=== PATIENT | female | born 1990 | race Caucasian/White ===

== ENCOUNTER 2016-07-14 20:36 | Emergency (ER) | payer OTHER | END 2016-07-14 22:36 | disposition home or self-care (01) | LOC: ER 20:36 | DX: L23.2 Allergic contact dermatitis due to cosmetics (principal); Z90.49 Acquired absence of other specified parts of digestive tract; Z98.84 Bariatric surgery status; Z88.1 Allergy status to other antibiotic agents; Z88.5 Allergy status to narcotic agent; Z91.018 Allergy to other foods; Z88.8 Allergy status to other drugs, medicaments and biological substances | CPT/HCPCS: 96372; J1100 ==

== ENCOUNTER 2016-12-20 09:26 | Emergency (ER) | payer OTHER | END 2016-12-20 11:01 | disposition home or self-care (01) | LOC: ER 09:26 | DX: S00.83XA Contusion of other part of head, initial encounter (principal); M79.7 Fibromyalgia; Z88.1 Allergy status to other antibiotic agents; Z91.018 Allergy to other foods; Z88.5 Allergy status to narcotic agent; Z88.8 Allergy status to other drugs, medicaments and biological substances; W50.0XXA Accidental hit or strike by another person, initial encounter; Y92.69 Other specified industrial and construction area as the place of occurrence of the external cause; Y99.0 Civilian activity done for income or pay ==